=== PATIENT | male | born 1945 | race Caucasian/White ===

== ENCOUNTER 2017-03-30 09:41 | Day surgery (SDC) | payer OTHER ==
[2017-03-17 11:15] VITALS: BMI 28.0
--- NOTE | 2017-03-17 11:51 | PAT Medication Instructions ---
Service Date Mar 17, 2017. Current Home Medication List Alfuzosin HCl (Alfuzosin HCl ER), 1 TAB PO HS Aspirin Enteric Coated (Ecotrin Or Generic), 81 MG PO QAM Clopidogrel (Plavix), 75 MG PO QAM Cyanocobalamin (Cyanocobalamin), 1 DOSE IM MONTHLY Fish Oil ([place]-3), 1 CAP PO QPM Gabapentin (Neurontin), 300 MG PO 1xweek PRN for Pain Lisinopril (Lisinopril), 1 TAB PO QAM Metoprolol Succinate (Metoprolol Succinate ER), 1 TAB PO HS Multiple Vitamin (Multivitamin), 1 TAB PO QAM Pravastatin (Pravachol ), 80 MG PO QPM Medication Instructions For Your Scheduled Surgery Clopidogrel (Plavix), 75 MG PO QAM (patient will be holding starting 03/27/17) Cyanocobalamin (Cyanocobalamin), 1 DOSE IM MONTHLY (continue as usual) - Hold the following medications 2 weeks prior to surgery: Fish Oil ([place]-3), 1 CAP PO QPM - Hold the following medications the morning of surgery: Multiple Vitamin (Multivitamin), 1 TAB PO QAM Lisinopril (Lisinopril), 1 TAB PO QAM - Take the following medications the morning of surgery with a sip of water: Gabapentin (Neurontin), 300 MG PO 1xweek PRN for Pain Aspirin Enteric Coated (Ecotrin Or Generic), 81 MG PO QAM (continue per surgeon) - Take the following medications as scheduled the night before surgery: Pravastatin (Pravachol ), 80 MG PO QPM Metoprolol Succinate (Metoprolol Succinate ER), 1 TAB PO HS Gabapentin (Neurontin), 300 MG PO 1xweek PRN for Pain Alfuzosin HCl (Alfuzosin HCl ER), 1 TAB PO HS If you have any questions please call us at [phone] or [phone] ( [place]) or [phone]
[2017-03-17 12:14] LABS: BASO % 0.2 %; BASO ABS # 0.02 K/uL (0-0.2); COMPLETE YES; EOS % 1.1 %; HEMATOCRIT 40.2 % (42-52); IG% 0.1 %; LYMPH % 33.6 %; LYMPH ABS # 2.87 K/uL (1.2-3.4); MEAN CELL VOLUME 93.7 fL (80-100); MEAN CORPUSCULAR HEMOGLOBIN 31.2 pg (25-34); MEAN CORPUSCULAR HGB CONC 33.3 g/dl (32-36); MEAN PLATELET VOLUME 8.8 fL (7.4-10.4); MONO % 10.1 %; NEUT % 54.9 %; PLATELET COUNT 312 K/uL (130-400); RED BLOOD COUNT 4.29 M/uL (4.7-6.1); WHITE BLOOD COUNT 8.55 K/uL (4.8-10.8)
[2017-03-17 12:15] LABS: URINE APPEARANCE CLEAR (CLEAR); URINE BILIRUBIN NEG (NEG); URINE COLOR YELLOW; URINE NITRITE NEG (NEG); URINE PH 5.5 (4.5-7.5); URINE SPECIFIC GRAVITY 1.018 (1.000-1.030); UROBILINOGEN NEG (NEG)
[2017-03-17 12:17] LABS: MANUAL MICROSCOPIC REQUIRED? NO; REVIEW REQ? NO
--- NOTE | 2017-03-17 12:33 | DIAGNOSTIC IMAGING REPORT ---
CHEST PREADMISSION(PA/LAT) CLINICAL HISTORY: Preoperative chest COMPARISON STUDY: 09/29/2012 FINDINGS: The cardiac and mediastinal contours are normal. There is no evidence of focal pulmonary consolidation. There is no evidence of failure. No pleural effusions are visualized.[ IMPRESSION: No active disease in the chest. Electronically signed by: Radames Becker M.D. 03/17/2017 12:32 PM Dictated Date/Time: 03/17/2017 12:31 PM
[2017-03-17 13:31] LABS: BUN/CREATININE RATIO 9.9 (10-20); CREATININE 1.2 mg/dl (0.60-1.40); POTASSIUM 4.3 mmol/L (3.5-5.1)
[2017-03-17 13:40] LABS: CALCIUM 9.2 mg/dl (8.5-10.1)
[~2017-03-30] VITALS: Ht 165.1 cm; Wt 76.4 kg
[~2017-03-30 09:41] MED LIST: ASPI81TA21 PO; ATROPINE SULFATE 0.1 MG/ML 5ML SYR IV PRN; CIPROFLOXACIN / D5W 400 MG IV SCH; CLOP1TAB15 PO; CYNI1000 IM; EpHEDrine SULFATE INJ 50 MG/ML AMP IV PRN; FENTANYL CITRATE INJ 50 MCG/1 ML 2 ML VIAL IV PRN; GABA-113 PO; HYDROmorphone INJ 1 MG/ML SYR IV PRN; LACTATED RINGER'S 1000ML 1,000 ML IV SCH; LSN20 PO; MULTTAB58 PO; OMEG10007 PO; ONDANSETRON INJ 2 MG/ML 2 ML VIAL IV PRN; PRAV20TA PO; TPRSR25 PO; URX/10 PO
[2017-03-30] MEDS ORDERED: FENTANYL CITRATE INJ 50 MCG/1 ML 2 ML VIAL ONE (09:58)
[2017-03-30 10:01] VITALS: BP 146/61; PULSE 72; TEMP 36.9; O2SAT 98; Ht 165.1 cm; Wt 76.4 kg
--- NOTE | 2017-03-30 10:27 | History & Physical Bridge Note ---
H&P Re-Evaluation Bridge Note: I have examined the patient, reviewed the History & Physical and in the interval since the performance of the History & Physical I have noted the following changes of clinical significance: No changes noted
[2017-03-30] MEDS ORDERED: PROPOFOL IV EMULSION 10 MG/ML 20 ML VIAL IV ONE (11:17)
[2017-03-30] MEDS ORDERED: DEXAMETHASONE SOD INJ 4 MG/ML VIAL ONE (11:17)
[2017-03-30] MEDS ORDERED: LIDOCAINE HCL 2% 2 ML VIAL (20MG/ML) ONE (11:17)
[2017-03-30] MEDS ORDERED: ONDANSETRON INJ 2 MG/ML 2 ML VIAL ONE (11:17)
--- NOTE | 2017-03-30 11:21 | [facility] Post Operative Brief Note ---
Immediate Operative Summary Operative Date Mar 30, 2017. Pre-Operative Diagnosis Bladder Cancer Post-Operative Diagnosis same Procedure(s) Performed Cystosopy, with bladder biopsies Surgeon Dr. Morelos Hand Endband Cutter Surgeon(s) none Estimated Blood Loss 3 ml Findings several (5+) small areas with very slight erythema and papillary architecture - most prominent areas were biopsied. All areas fulgurated Specimens A. dome b. posterior wall Drains none Anesthesia gen Complication(s) None Disposition Recovery Room / PACU (stable)
[2017-03-30] MEDS ORDERED: CIPR-255 PO (11:22)
[2017-03-30] MEDS ORDERED: SODIUM CHLORIDE 0.9% 1000ML 1,000 ML IV SCH (11:38)
--- NOTE | 2017-03-30 11:38 | Discharge Instructions ---
Discharge Instructions Date of Service Mar 30, 2017. Admission Reason for Admission: Bladder Cancer Discharge Discharge Diagnosis / Problem: treat bladder cancer Discharge Goals Goal(s): Decrease discomfort, Improve function, Increase independence, Improve disease control, Prevent Disease Progression Activity Recommendations Activity Limitations: resume your previous activity Lifting Limitations: none Exercise/Sports Limitations: none May Resume Sexual Activity: when tolerated Shower/Bathe: no limitations Driving or Machine Use: resume 1 day after discharge . Instructions / Follow-Up Instructions / Follow-Up Please keep your previously scheduled follow up appointment. Please hold your plavix for an additional 48 hours. If your urine is relatively clear, you may resume the medication. Discharge Diet Recommended Diet: Regular Diet Procedures Procedures Performed: Cystosopy, with bladder biopsies Pending Studies Studies pending at discharge: no Medical Emergencies . Who to Call and When: Medical Emergencies: If at any time you feel your situation is an emergency, please call 911 immediately. . Non-Emergent Contact Non-Emergency issues call your: Urologist Call Non-Emergent contact if: you have a fever, temperature is above 101.5, your pain is not controlled, your pain is worsening . . "Provider Documentation" section prepared by Lazarus Johnson. . VTE Core Measure Inpt VTE Proph given/why not?: Other Anticoagulation
[2017-03-30] MEDS ORDERED: OXYCODONE/ACETAMINOPHEN 5-325 TAB PO PRN ×2 (11:45)
[2017-03-30] MEDS ORDERED: ACETAMINOPHEN 325 MG TAB PO PRN (11:45)
--- NOTE | 2017-03-30 11:56 | Anesthesiology Progress Note ---
Anesthesia Post Op Note Date & Time Mar 30, 2017 at 11:56 Vital Signs Pain Intensity: 0 Vital Signs Past 12 Hours Date Time Temp Pulse Resp B/P (MAP) Pulse Ox O2 Delivery O2 Flow Rate FiO2 03/30/17 11:50 69 14 141/64 98 Oxymask 3 03/30/17 11:40 74 14 164/76 100 Oxymask 5 03/30/17 11:30 75 14 172/90 100 Oxymask 10 03/30/17 11:25 36.2 84 14 152/61 100 Oxymask 10 03/30/17 10:01 36.9 72 20 146/61 (89) 98 Room Air Notes Mental Status: alert / awake / arousable, participated in evaluation Pt Amnestic to Procedure: Yes Nausea / Vomiting: adequately controlled Pain: adequately controlled Airway Patency, RR, SpO2: stable & adequate BP & HR: stable & adequate Hydration State: stable & adequate Anesthetic Complications: no major complications apparent
[2017-03-30 12:26] VITALS: BP 134/82; PULSE 68; TEMP 36.5; O2SAT 99
--- NOTE | 2017-03-30 12:39 | OPERATIVE REPORT ---
DATE OF OPERATION: 03/30/2017 PREOPERATIVE DIAGNOSIS: Bladder cancer. POSTOPERATIVE DIAGNOSIS: Bladder cancer. PROCEDURE PERFORMED: Cystoscopy, bladder biopsy x2, fulguration of 5 lesions. ANESTHESIA: General. ESTIMATED BLOOD LOSS: Zero. URINE OUTPUT: Not recorded. SPECIMEN: 1. Bladder biopsy near the dome. 2. Bladder biopsy posterior wall. DRAINS: No drains. COMPLICATIONS: No complications. DESCRIPTION OF THE PROCEDURE: Julio Cesar Pena was identified in the preoperative holding area. Appropriate informed consents were reviewed and completed, and the patient was transported to the operating suite. Upon arrival, he received appropriate preoperative antibiotics in the form of ciprofloxacin. Adequate general anesthesia was achieved and he was placed in dorsal lithotomy position where he was sterilely prepped and draped in standard fashion. I began the case by passing a 24-Danish resectoscope with 30-degree lens and visual obturator. Full inspection of the bladder was carried out. This revealed several well-healed scars from prior TURBT sites. He has several lesions on the posterior bladder wall that are erythematous in appearance. Two of these have a papillary architecture appreciated as well, although they are not large tumors protruding significantly into the bladder. After this full inspection, I passed biopsy forceps and biopsied the 2 areas with papillary architecture. I then proceeded to pass a cautery loop and fulgurated the base of these biopsy sites as well as other erythematous areas on the posterior wall. After feeling that all erythematous areas were adequately treated, I concluded my portion of the case. The patient was extubated and taken to the PACU in stable condition. I attest to the content of the Intraoperative Record and any orders documented therein. Any exception s are noted below.
[2017-03-30 12:40] VITALS: BP 142/60; PULSE 68; TEMP 36.6; O2SAT 97
[2017-03-30] MEDS ORDERED: TAMSULOSIN HCL 0.4 MG CAP PO SCH (21:00)
== END 2017-03-30 12:55 | disposition home or self-care (01) ==
LOC: C.ACU 09:41
PROVIDERS: ATTEND Urology
DX: C67.1 Malignant neoplasm of dome of bladder (principal); I25.10 Atherosclerotic heart disease of native coronary artery without angina pectoris; F17.200 Nicotine dependence, unspecified, uncomplicated; Z91.040 Latex allergy status; E78.00 Pure hypercholesterolemia, unspecified; I10 Essential (primary) hypertension; Z98.890 Other specified postprocedural states; Z79.82 Long term (current) use of aspirin

== ENCOUNTER → 2017-07-15 | Outpatient (CLI) | payer OTHER ==
[~2017-07-15] MED LIST changes: -ATROPINE SULFATE 0.1 MG/ML 5ML SYR IV PRN; +CIPR-255 PO; -CIPROFLOXACIN / D5W 400 MG IV SCH; -EpHEDrine SULFATE INJ 50 MG/ML AMP IV PRN; -FENTANYL CITRATE INJ 50 MCG/1 ML 2 ML VIAL IV PRN; -HYDROmorphone INJ 1 MG/ML SYR IV PRN; -LACTATED RINGER'S 1000ML 1,000 ML IV SCH; -ONDANSETRON INJ 2 MG/ML 2 ML VIAL IV PRN
== END | disposition home or self-care (01) ==
LOC: C.LABSPEC 17:11
PROVIDERS: ATTEND Urology
DX: D49.4 Neoplasm of unspecified behavior of bladder (principal)

== ENCOUNTER → 2018-01-27 | Outpatient (CLI) | payer OTHER ==
[~2018-01-27] MED LIST changes: +ASPI-319 PO; -ASPI81TA21 PO
== END | disposition home or self-care (01) ==
LOC: C.PATHSPEC 17:14
PROVIDERS: ATTEND Urology
DX: C67.9 Malignant neoplasm of bladder, unspecified (principal)

== ENCOUNTER → 2018-05-26 | Outpatient (CLI) | payer OTHER ==
[~2018-05-26] MED LIST changes: +LISI-726 PO; -LSN20 PO
== END | disposition home or self-care (01) ==
LOC: C.PATHSPEC 17:18
PROVIDERS: ATTEND Urology
DX: C67.9 Malignant neoplasm of bladder, unspecified (principal)